=== PATIENT | male | born 1960 | race Caucasian/White ===

== ENCOUNTER → 2017-09-23 | Day surgery (SDC) | payer OTHER ==
[~2017-09-23] VITALS: Ht 180.3 cm; Wt 99.8 kg
--- NOTE | 2017-09-23 08:35 | Operative Report ---
Operative/Inv Procedure Report Surgery Date: 09/23/17 Name of Procedure: Right Renal ESWL Pre-Operative Diagnosis: Right renal calculus Post-Operative Diagnosis: Same Estimated Blood Loss: scant Surgeon/Supervisor [employer]: Goldy Ambriz MD Anesthesia: moderate sedation Drains: None Specimens: None Complications: None Condition: Stable Operative Indication: Right renal calculus found on workup for hematuria Operative/Procedure Note Note: The patient was taken to the lithotripsy room and identified. He was placed in supine position on the lithotripsy table. A timeout was executed appropriately with the patient awake. Using ultrasound the stone was localized to the F2 focal point. The patient was then given intravenous sedation. A surgical pause was executed appropriately. The procedure was then begun. A total of 2500 shocks were given to the stone. This started at a low energy level and was increased to maximum. The stone did appear to fragment at least partially. The patient tolerated the procedure well and as completion was taken to same day surgery in stable condition Findings: 1 cm right mid pole renal calculus Discharge Disposition: Same Day Admissions
== END ==
LOC: STS 03:30
DX: N20.0 Calculus of kidney (principal); R31.9 Hematuria, unspecified; E11.9 Type 2 diabetes mellitus without complications; Z79.84 Long term (current) use of oral hypoglycemic drugs; I10 Essential (primary) hypertension; M06.9 Rheumatoid arthritis, unspecified
CPT/HCPCS: 93005; 93010; J2250; J2405